=== PATIENT | female | born 1965 | race Caucasian/White ===

== ENCOUNTER → 2016-10-21 | Outpatient (CLI) | payer OTHER ==
--- NOTE | 2016-10-22 08:34 | Diagnostic Imaging Report ---
Digital mammogram bilateral screening with tomosynthesis. This study was compared to the prior exams of 11/27/2015, 11/10/2014, and 09/16/2013. At this time, there are no current complaints. The current study was also evaluated with a Computer Aided Detection (CAD) system. FINDINGS: Fibroglandular tissue in both breasts is heterogeneously dense. This does limit the sensitivity of this exam. The tomographic views do suggest that there are three rounded densities in the upper-outer aspect of the right breast approximately 6-7 cm from the nipple. The largest of these rounded densities measures 1 cm. I suspect that these are cysts. Even so, I would recommend that ultrasound be performed to better characterize these findings. The overall appearance of the breasts has not changed significantly otherwise. There are several other smaller rounded densities in both breasts. These are most likely benign as well. IMPRESSION: Ultrasound will be recommended for further evaluation of the rounded densities in the upper-outer quadrant of the right breast. ACR BI-RADS Category 0: Incomplete. (Needs additional imaging evaluation). Result letter will be mailed to the patient. Note: At least 10% of breast cancer is not imaged by mammography. Dictated by: Dictated on workstation # [id number]
== END ==
LOC: RAD 09:36
PROVIDERS: ATTEND Nurse Practitioner
DX: Z12.31 Encounter for screening mammogram for malignant neoplasm of breast (principal); R92.8 Other abnormal and inconclusive findings on diagnostic imaging of breast
CPT/HCPCS: 77067

== ENCOUNTER → 2016-11-03 | Outpatient (CLI) | payer OTHER ==
--- NOTE | 2016-11-03 19:49 | Diagnostic Imaging Report ---
EXAMINATION: Ultrasound of the right breast. INDICATION: Abnormal mammogram. FINDINGS: The recent screening mammogram of 10/21/2016 noted several rounded densities in the upper-outer quadrant of the right breast. These were felt to be related to cysts, but ultrasound was recommended to better characterize these findings. On this exam, there are indeed multiple cysts in the upper-outer quadrant of the right breast. The largest of these is in the 10:30 position and measures 1.1 x 0.6 x 1.1 cm. This has the typical appearance of a benign cyst. There is also a small roughly 0.7 cm septated slightly complicated cyst in the 12 o'clock position, roughly 6 cm from the nipple. This has developed in the interval since the prior right breast ultrasound exam of 11/24/2014. I do suspect that this is a benign process, but it may prove worthwhile to have a short-term (six-month) followup mammogram and ultrasound exam of the right breast for further study. There were no solid lesions to suggest malignancy. IMPRESSION: 1. The rounded densities seen on the mammogram are felt to be related to cysts. There does appear to be a septated slightly complicated cyst in the 12 o'clock position. Recommendations as above. 2. There is no evidence of malignancy. ACR BI-RADS Category 3: Probably benign findings. Dictated by: Dictated on workstation # [id number]
== END ==
LOC: RAD 14:06
PROVIDERS: ATTEND Nurse Practitioner
DX: R92.8 Other abnormal and inconclusive findings on diagnostic imaging of breast (principal); N60.01 Solitary cyst of right breast

== ENCOUNTER → 2016-12-14 | Outpatient (CLI) | payer OTHER ==
--- NOTE | 2016-12-14 11:11 | Diagnostic Imaging Report ---
Transabdominal and transvaginal pelvic ultrasound. INDICATION: Dysfunctional uterine bleeding. FINDINGS: The uterus is retroflexed and measures 7.3 x 5.7 x 5.0 cm. It is slightly enlarged with heterogeneous myometrium. There is a posterior uterine fibroid in the body of the uterus that is predominantly myometrial with a submucosal component impinging upon the endometrial stripe. It measures 1.5 x 1.3 x 1.1 cm. The endometrial stripe is 0.7 cm in thickness. The right ovary is 3.3 x 2.2 x 1.6 cm. The left ovary is 2.2 x 2.2 x 2.3 cm. Slightly prominent follicles are seen in both ovaries. Arterial and venous waveforms are noted with Doppler evaluation. Incidental note of a nabothian cyst in the cervix measuring 9 mm is seen. IMPRESSION: Myometrial fibroid with a submucosal component that has mild mass effect upon the endometrium is seen. Dictated by: Dictated on workstation # [id number]
== END ==
LOC: RAD 09:06
PROVIDERS: ATTEND Nurse Practitioner
DX: N93.8 Other specified abnormal uterine and vaginal bleeding (principal)
CPT/HCPCS: 76830; 76856

== ENCOUNTER → 2016-12-15 | Outpatient (CLI) | payer OTHER ==
[2016-12-15 06:48] LABS: BASOPHILS % (AUTO) 0 % (0-10); EOSINOPHILS # (AUTO) 0.1 10^3/uL (0.0-0.3); EOSINOPHILS % (AUTO) 2 % (0-10); LYMPHOCYTES # (AUTO) 1.1 X 10^3 (1.0-4.0); LYMPHOCYTES % (AUTO) 19 % (12-44); MEAN CORPUSCULAR HEMOGLOBIN 31 PG (25-34); MEAN CORPUSCULAR HGB CONC 34 G/DL (32-36); MEAN CORPUSCULAR VOLUME 93 FL (80-99); MEAN PLATELET VOLUME 9.2 FL (7.4-10.4); MONOCYTES # (AUTO) 0.7 X 10^3 (0.0-1.0); MONOCYTES % (AUTO) 12 % (0-12); NEUTROPHILS # (AUTO) 3.9 X 10^3 (1.8-7.8); NEUTROPHILS % (AUTO) 67 % (42-75); PLATELET COUNT 300 10^3/uL (130-400); RED BLOOD COUNT 4.49 10^6/uL (4.35-5.85); RED CELL DISTRIBUTION WIDTH 12.7 % (10.0-14.5); WHITE BLOOD COUNT 5.8 10^3/uL (4.3-11.0)
[2016-12-15 07:10] LABS: ALANINE AMINOTRANSFERASE 22 U/L (0-55); ALBUMIN 4.2 GM/DL (3.2-4.5); ANION GAP 7 MMOL/L (5-14); ASPARTATE AMINO TRANSFERASE 20 U/L (5-34); BILIRUBIN,TOTAL 0.5 MG/DL (0.1-1.0); BLOOD UREA NITROGEN 15 MG/DL (7-18); BUN/CREATININE RATIO 19; CALCIUM 9.3 MG/DL (8.5-10.1); CARBON DIOXIDE 29 MMOL/L (21-32); CHLORIDE 104 MMOL/L (98-107); CHOLESTEROL 179 MG/DL (< 200); DIRECT LDL 105 MG/DL (1-129); GFR ESTIMATED > 60; GLUCOSE 94 MG/DL (70-105); POTASSIUM 3.5 MMOL/L (3.6-5.0); SODIUM 140 MMOL/L (135-145); TOTAL PROTEIN 7.1 GM/DL (6.4-8.2); TRIGLYCERIDES 83 MG/DL (<150); VLDL CHOLESTEROL 17 MG/DL (5-40)
== END ==
LOC: SDC 06:35
PROVIDERS: ATTEND Family Medicine
DX: E78.2 Mixed hyperlipidemia (principal); I10 Essential (primary) hypertension
CPT/HCPCS: 36415; 80053; 80061; 84443; 85025

== ENCOUNTER → 2017-05-05 | Outpatient (CLI) | payer BC, OTHER ==
--- NOTE | 2017-05-05 09:12 | Diagnostic Imaging Report ---
Indication: Six-month followup of right breast densities. Correlation is made with prior study from 10/21/2016 and 11/27/2015. Findings: Moderate density in the right breast is again noted. There does appear to be slightly less nodularity in the upper and outer aspect of the right breast when compared with prior study. This may be owing to diminution of previously described cyst. No new mass is identified. No suspicious calcifications are seen. The right axilla is unremarkable. Impression: There appears to be some improvement in nodularity in the upper-outer right breast when compared with examination from 10/21/2016. Further evaluation with ultrasound is recommended and will be performed today as well. BI-RADS 0 ACR BI-RADS Category 0: Incomplete. (Needs additional imaging evaluation). Result letter will be mailed to the patient. Note: At least 10% of breast cancer is not imaged by mammography. Dictated by: Dictated on workstation # [id number]
--- NOTE | 2017-05-05 09:49 | Diagnostic Imaging Report ---
Indication: Six-month followup of right breast cysts. Comparison is made with diagnostic mammogram from earlier the same day as well as prior right breast ultrasound from 11/03/2016. Previously noted dominant simple cyst at the 10:30 location of the right breast 4 cm from the nipple is no longer visualized. There is a tiny cyst at the 11 o'clock location. The previously noted complex cyst at the 12 o'clock location 6 cm from the nipple measures 5 mm x 4 mm x 7 mm. This is unchanged from prior exam. No new mass is identified. Impression: BI-RADS category 3 1. Stable complex cyst 12 o'clock location of the right breast when compared with exam from 11/03/2016. The simple cyst at the 10:30 location has resolved. Additional followup with bilateral mammography and right breast ultrasound in 6 months is recommended to show continued stability. Dictated by: Dictated on workstation # [id number]
== END ==
LOC: RAD 08:07
PROVIDERS: ATTEND Nurse Practitioner
DX: N60.01 Solitary cyst of right breast (principal)

== ENCOUNTER → 2018-02-13 | Outpatient (CLI) | payer BC ==
--- NOTE | 2018-02-13 13:59 | Diagnostic Imaging Report ---
INDICATION: Six-month followup. COMPARISON: Prior right mammogram from 05/05/2017 and bilateral mammograms of 10/21/2016 and 11/27/2015. TECHNIQUE: 2D and 3D bilateral screening mammography was performed with CAD. FINDINGS: Both breasts remain heterogeneously dense, limiting the sensitivity of mammography. A fibronodular parenchymal pattern is again noted. Numerous circumscribed densities are again noted bilaterally, consistent with cysts. These appear to wax and wane. No spiculated mass or malignant appearing microcalcifications are identified. The axillae are unremarkable. IMPRESSION: Stable bilateral mammograms. The patient is scheduled to undergo right breast ultrasound for a six-month followup of the previously noted complex cyst at the 12 o'clock location. ACR BI-RADS Category 0: Incomplete. (Needs additional imaging evaluation). Result letter will be mailed to the patient. Note: At least 10% of breast cancer is not imaged by mammography. Dictated by: Dictated on workstation # [id number]
--- NOTE | 2018-02-13 14:54 | Diagnostic Imaging Report ---
INDICATION: Six-month followup of a complex cyst in the right breast at the 12 o'clock location. COMPARISON: Correlation is made with the prior right breast ultrasound from 05/05/2017. FINDINGS: There are multiple simple appearing cysts identified in the right breast at the 11 to 1 o'clock location. These are all less than 1 cm in size. The majority of the cysts are approximately 6 mm or smaller. No complexity is seen to the cysts. The previously noted complex cyst at the 12 o'clock location is no longer visualized. No solid mass is detected. IMPRESSION: Simple cysts in the right breast, as described. No complex cyst or solid mass is seen on today's study. The patient may return to routine annual screening mammography. ACR BI-RADS Category 2: Benign findings. Dictated by: Dictated on workstation # [id number]
== END ==
LOC: RAD 08:47
PROVIDERS: ATTEND Nurse Practitioner
DX: Z12.31 Encounter for screening mammogram for malignant neoplasm of breast (principal); N60.01 Solitary cyst of right breast
CPT/HCPCS: 77067

== ENCOUNTER → 2019-02-14 | Outpatient (CLI) | payer BC ==
--- NOTE | 2019-02-14 13:11 | Diagnostic Imaging Report ---
INDICATION: Routine screening. COMPARISON is made with prior mammograms from 02/13/2018 and 10/21/2016. 2-D and 3-D bilateral screening mammography was performed with CAD. Both breasts remain heterogeneously dense, limiting the sensitivity of mammography. Circumscribed densities are identified in both breasts, most consistent with cysts. These show waxing and waning. No spiculated mass is identified. No malignant appearing microcalcifications are seen. Axillae are unremarkable. IMPRESSION: BI-RADS Category 2 No mammographic features suspicious for malignancy are identified. ACR BI-RADS Category 2: Benign findings. Result letter will be mailed to the patient. Note: At least 10% of breast cancer is not imaged by mammography. Dictated by: Dictated on workstation # [id number]
== END ==
LOC: RAD 10:27
PROVIDERS: ATTEND Nurse Practitioner
DX: Z12.31 Encounter for screening mammogram for malignant neoplasm of breast (principal)
CPT/HCPCS: 77067

== ENCOUNTER → 2020-02-17 | Outpatient (CLI) | payer BC ==
--- NOTE | 2020-02-17 12:26 | Diagnostic Imaging Report ---
INDICATION: Routine screening. Comparison is made with prior mammogram 02/14/2019 and 02/13/2018. 2-D and 3-D bilateral screening mammography was performed with CAD. Both breasts remain heterogeneously dense, limiting the sensitivity of mammography. Circumscribed densities in both breasts persist, consistent with cysts. No dominant mass is identified. No malignant appearing microcalcifications are seen. Axillae are unremarkable. IMPRESSION: BI-RADS Category 2 No mammographic features suspicious for malignancy are identified. ACR BI-RADS Category 2: Benign findings. Result letter will be mailed to the patient. Note: At least 10% of breast cancer is not imaged by mammography. Dictated by: Dictated on workstation # [id number]
== END ==
LOC: RAD 08:15
PROVIDERS: ATTEND Surgery
DX: Z12.31 Encounter for screening mammogram for malignant neoplasm of breast (principal)
CPT/HCPCS: 77063; 77067

== ENCOUNTER → 2020-09-21 | Outpatient (CLI) | payer BC ==
--- NOTE | 2020-09-21 17:44 | Diagnostic Imaging Report ---
PROCEDURE: US Non-ob pelvis comp/trans. INDICATION: DYSFUNCTIONAL UTERINE BLEEDING TECHNIQUE: Multiple real time krueger scale sonographic images were obtained of the pelvis transabdominally and endovaginally. CORRELATION STUDY: 12/14/2016 FINDINGS: UTERUS: 6.5 x 5.9 x 5.8 cm. There is heterogeneous echotexture throughout the majority of the myometrium. This did limit echo penetration. Questionable area of a potential fibroid is present. Uterus is noted to be retroverted which also limits assessment. ENDOMETRIUM: 12 mm. Endometrium is somewhat limited in assessment as well owing to the heterogeneity throughout the myometrium. This may be accentuated by submucosal fibroid at 1.4 x 1.4 x 1.4 cm. RIGHT OVARY: 2.4 x 1.5 x 2.0 cm The right ovary has an unremarkable appearance. No concerning mass. Blood flow is present. LEFT OVARY: 3.2 x 2.1 x 2.2 cm Dominant cyst at 1.9 x 1.7 x 1.6 cm. Blood flow is demonstrated to the left ovary. Free fluid is noted in the pelvic cul-de-sac. IMPRESSION: 1. Overall assessment of the uterus and endometrium is limited. Fairly heterogeneous echotexture throughout the majority of the myometrium. May be reflective of underlying fibroids. Probable submucosal fibroid at 1.4 cm in size. 2. Slightly dominant nearly 2 cm left ovarian cyst, likely physiologic. Dictated by: Dictated on workstation # [id number]
== END ==
LOC: RAD 10:00
PROVIDERS: ATTEND Nurse Practitioner
DX: N83.202 Unspecified ovarian cyst, left side (principal)
CPT/HCPCS: 76830; 76856

== ENCOUNTER → 2021-02-17 | Outpatient (CLI) | payer BC ==
--- NOTE | 2021-02-17 11:36 | Diagnostic Imaging Report ---
Indication: Routine screening. Comparison is made prior mammogram from 02/17/2020 and 02/14/2019. 2-D and 3-D bilateral screening mammography was performed with CAD. Both breast are heterogeneously dense, limiting the sensitivity of mammography. The overall parenchymal pattern appears to be stable. No discrete mass or malignant appearing microcalcifications are seen. Axillae are unremarkable. IMPRESSION: BI-RADS Category 1 No mammographic features suspicious for malignancy are identified. ACR BI-RADS Category 1: Negative. Result letter will be mailed to the patient. Note: At least 10% of breast cancer is not imaged by mammography. Dictated by: Dictated on workstation # [id number]
== END ==
LOC: RAD 10:15
PROVIDERS: ATTEND Nurse Practitioner
DX: Z12.31 Encounter for screening mammogram for malignant neoplasm of breast (principal)
CPT/HCPCS: 77063; 77067

== ENCOUNTER → 2022-02-25 | Outpatient (CLI) | payer BC ==
--- NOTE | 2022-02-25 10:44 | Diagnostic Imaging Report ---
Indication: Routine screening. Comparison is made prior mammograms 02/17/2021 and 02/17/2020. 2-D and 3-D bilateral screening mammography was performed with CAD. Scattered fibroglandular densities are identified bilaterally. The overall parenchymal pattern is stable. No dominant mass or malignant-appearing microcalcifications are identified. Axillae are unremarkable. IMPRESSION: BI-RADS Category 1 No mammographic features suspicious for malignancy are identified. ACR BI-RADS Category 1: Negative. Result letter will be mailed to the patient. Note: At least 10% of breast cancer is not imaged by mammography. Dictated by: Dictated on workstation # [id number]
== END ==
LOC: RAD 09:00
PROVIDERS: ATTEND Surgery
DX: Z12.31 Encounter for screening mammogram for malignant neoplasm of breast (principal)
CPT/HCPCS: 77063; 77067